=== PATIENT | male | born 1970 | race African-American/Black ===

== ENCOUNTER 2023-07-14 00:06 | Emergency (ER) | payer SELFPAY ==
[~2023-07-14] VITALS: Ht 187.9 cm; Wt 72.6 kg
[2023-07-14 00:34] LABS: HEMATOCRIT 29.9 % (42.0-52.0); MEAN CELL VOLUME 82.1 fl (80.0-94.0); MEAN CORPUSCULAR HGB 29.1 pg (27.0-31.0); MEAN CORPUSCULAR HGB CONC 35.5 g/dl (33.0-37.0); MEAN PLATELET VOLUME 10.4 fl (9.6-12.3); NUCLEATED RED BLOOD CELL 0.3 10*3/uL (0.0-0.0); NUCLEATED RED BLOOD CELL 2.5 % (0.0-0.0); PLATELET COUNT AUTOMATED 394 10*3/uL (130-400); RED BLOOD COUNT 3.64 10*6/uL (4.50-5.90); RED CELL DISTRI WIDTH 19.9 % (0-14.5); WHITE BLOOD COUNT 12.4 10*3/uL (4.8-10.8)
[2023-07-14 00:36] LABS: MANUAL DIFF REFLEX YES
[2023-07-14 00:55] LABS: ALKALINE PHOSPHATASE 99 U/L (46-116); BUN 7 mg/dl (9-23); CHLORIDE 107 mmol/L (98-107); POTASSIUM 3.7 mmol/L (3.4-5.1); SGPT/ALT 36 U/L (10-49); TOTAL PROTEIN 7.9 gm/dL (6.0-8.0)
[2023-07-14 01:09] LABS: TOTAL CELLS COUNTED 100 #CELLS
[2023-07-14 01:17] LABS: POLYCHROMASIA SLIGHT; SCHISTOCYTES FEW; TARGET CELLS FEW
[2023-07-14 01:18] LABS: PLATELET SUFFICIENCY NORMAL (NORMAL)
[2023-07-14 01:45] LABS: BILIRUBIN Negative (Negative); BLOOD Trace-Lysed (Negative); CLARITY Clear (Clear); COLOR Yellow (Yellow); GLUCOSE Trace (Negative); KETONE Negative (Negative); LEUKO ESTERASE Negative (Negative); NITRITE Negative (Negative)
[2023-07-14 02:05] LABS: RBC 0-2 rbc/hpf (0-2); WBC 0-2 wbc/hpf (0-5)
[2023-07-14 05:41] LABS: HOWELL-JOLLY BODIES FEW
[2023-07-14] MEDS ORDERED: HYDROCODONE-AC1 EAC1 PO (06:35)
== END 2023-07-14 06:45 | disposition home or self-care (01) ==
LOC: ED 00:06
PROVIDERS: Internal Medicine
DX: D57.00 Hb-SS disease with crisis, unspecified (principal); I16.0 Hypertensive urgency; D72.829 Elevated white blood cell count, unspecified; D64.9 Anemia, unspecified